=== PATIENT | male | born 1975 | race Caucasian/White ===

== ENCOUNTER 2022-03-17 17:14 | Emergency (ER) | payer MEDICAID ==
[~2022-03-17] VITALS: Ht 165.1 cm; Wt 86.2 kg
--- NOTE | 2022-03-17 17:30 | NUR ---
46 y/o M BIB self from home c/o nausea, vomiting blood this morning. Patient A&Ox4, ambulatory, states has been drinking for last 3 days; reports drinking 5 shots of liquor this morning and had 5 episodes of vomiting with blood in emesis. Jaudice noted to bilateral eyes. Patient denies abdominal pain, chest pain, diarrhea, constipation, dysuria, urinary symptoms, dizziness, headache. 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 VSS. Bed locked in lowest position, side rails x 1. PMH: etoh abuse "multiple years," DM Meds: becky HOLLOWAY Sx: Denies
--- NOTE | 2022-03-17 17:30 | NUR ---
Dr. Lao evaluating patient at bedside
--- NOTE | 2022-03-17 17:30 | NUR ---
Pt ambulated to bed 11 with steady/even gait.
[2022-03-17 17:31] VITALS: BP 156/80
--- NOTE | 2022-03-17 17:41 | NUR ---
Blood work given to CPT Nimco at ER bedside
--- NOTE | 2022-03-17 17:44 | NUR ---
Patient given urinal for urine collection.
[2022-03-17 17:50] LABS: BASOPHILS % (AUTO) 0.8 % (0.0-2.0); EOSINOPHILS % (AUTO) 0.7 % (0.0-4.0); HEMOGLOBIN 15.7 g/dL (12.0-18.0); LYMPHOCYTES # (AUTO) 1.5 K/uL (2.0-11.5); LYMPHOCYTES % (AUTO) 24.8 % (20.5-51.1); MEAN CORPUSCULAR HEMOGLOBIN 34 pg (27-31); MEAN CORPUSCULAR HGB CONC 36 g/dL (33-37); MEAN CORPUSCULAR VOLUME 96.8 fL (80-94); MONOCYTES # (AUTO) 0.4 K/uL (0.8-1.0); MONOCYTES % (AUTO) 6.3 % (1.7-9.3); NEUTROPHILS % (AUTO) 67.4 % (42.2-75.2); PLATELET COUNT (AUTO) 169 K/uL (140-450); RED BLOOD CELL COUNT(AUTO) 4.54 MIL/uL (4.20-6.10); RED CELL DISTRIBUTION WIDTH 13.9 % (11.6-13.7); WHITE BLOOD COUNT (AUTO) 5.9 K/uL (4.8-10.8)
[2022-03-17 18:08] LABS: ANION GAP 17.4 (8-16); CARBON DIOXIDE 28.1 mmol/L (21-32); CREATININE 0.8 mg/dL (0.6-1.3); POTASSIUM 3.5 mmol/L (3.5-5.1)
[2022-03-17 18:15] LABS: ALBUMIN 4.3 g/dL (3.4-5.0); TOTAL BILIRUBIN 0.5 mg/dL (0.0-1.0)
[2022-03-17] MEDS: PANTOPRAZOLE 40 MG INJ VIAL IVP ONE (18:19)
[2022-03-17] MEDS ORDERED: LIB25 PO (18:40)
[2022-03-17] MEDS ORDERED: ONDA-188 SL (18:40)
[2022-03-17] MEDS ORDERED: FAMO-90 PO (18:40)
[2022-03-17 19:08] VITALS: BP 135/73
--- NOTE | 2022-03-17 19:08 | NUR ---
Patient discharged with v/s stable. Written and verbal after care instructions given and explained for Alcohol Use Disorder, Gastritis (Adult). Patient alert, oriented and verbalized understanding of instructions. Ambulatory with steady gait. All questions addressed prior to discharge. ID band removed. Patient advised to follow up with PMD. Rx of Zofran ODT, famotidine, Librium given. Patient educated on indication of medication including possible reaction and side effects. Opportunity to ask questions provided and answered. Copies of blood work given to patient.
== END 2022-03-17 19:08 | disposition home or self-care (01) ==
LOC: MED 17:14
DX: K29.20 Alcoholic gastritis without bleeding (principal); K22.6 Gastro-esophageal laceration-hemorrhage syndrome; E11.9 Type 2 diabetes mellitus without complications; Z79.899 Other long term (current) drug therapy
CPT/HCPCS: 36415; 80053; 85025; 85610; 85730; 86886; 86900; 86901; 96374; 99283; C9113

== ENCOUNTER 2022-04-01 17:47 | Emergency (ER) | payer MEDICAID ==
[~2022-04-01] VITALS: Ht 158.8 cm; Wt 72.8 kg
[~2022-04-01 17:47] MED LIST: FAMO-90 PO; LIB25 PO; ONDA-188 SL
[2022-04-01 17:58] VITALS: BP 138/83
--- NOTE | 2022-04-01 18:00 | NUR ---
BIB SELF FOR MED REFILL & CELLULITIS.
[2022-04-01] MEDS ORDERED: CEPH-588 PO (19:14)
[2022-04-01 19:20] VITALS: BP 138/83
== END 2022-04-01 19:20 | disposition home or self-care (01) ==
LOC: MED 17:47
DX: L03.211 Cellulitis of face (principal); E11.9 Type 2 diabetes mellitus without complications; Z79.899 Other long term (current) drug therapy; Z76.0 Encounter for issue of repeat prescription
CPT/HCPCS: 99281; 99283

== ENCOUNTER 2022-10-29 11:35 | Emergency (ER) | payer SELFPAY ==
[~2022-10-29] VITALS: Ht 162.6 cm; Wt 77.1 kg
[~2022-10-29 11:35] MED LIST changes: +CEPH-588 PO
[2022-10-29 11:55] VITALS: BP 126/95; PULSE 73; RESP 18; TEMP 98.7; O2SAT 99
[2022-10-29 15:03] LABS: BASOPHILS % (AUTO) 0.2 % (0.0-2.0); HEMATOCRIT 41.9 % (36-52); HEMOGLOBIN 14.5 g/dL (12.0-18.0); LYMPHOCYTES # (AUTO) 0.7 K/uL (2.0-11.5); LYMPHOCYTES % (AUTO) 10.4 % (20.5-51.1); MEAN CORPUSCULAR HEMOGLOBIN 34 pg (27-31); MEAN CORPUSCULAR HGB CONC 35 g/dL (33-37); MEAN CORPUSCULAR VOLUME 98.1 fL (80-94); MONOCYTES # (AUTO) 0.6 K/uL (0.8-1.0); MONOCYTES % (AUTO) 9.1 % (1.7-9.3); NEUTROPHILS # (AUTO) 5.7 K/uL (1.8-7.7); NEUTROPHILS % (AUTO) 80.3 % (42.2-75.2); PLATELET COUNT (AUTO) 168 K/uL (140-450); RED BLOOD CELL COUNT(AUTO) 4.27 MIL/uL (4.20-6.10); WHITE BLOOD COUNT (AUTO) 7.1 K/uL (4.8-10.8)
[2022-10-29 15:14] LABS: ANION GAP 13.6 (8-16); CALCIUM 9.2 mg/dL (8.5-10.1); CARBON DIOXIDE 30.4 mmol/L (21-32); CREATININE 0.7 mg/dL (0.6-1.3)
[2022-10-29 15:37] LABS: LIPASE 85 U/L (73-393)
[2022-10-29] MEDS ORDERED: ASPIRIN 325 MG TAB PO ONE (16:00)
[2022-10-29 16:10] VITALS: BP 148/76; PULSE 69; RESP 18; TEMP 98; O2SAT 98
== END 2022-10-29 16:10 | disposition home or self-care (01) ==
LOC: MED 11:35
DX: R07.9 Chest pain, unspecified (principal); R11.2 Nausea with vomiting, unspecified; E11.65 Type 2 diabetes mellitus with hyperglycemia; I10 Essential (primary) hypertension; Z79.4 Long term (current) use of insulin; Z79.899 Other long term (current) drug therapy
CPT/HCPCS: 36415; 71045; 80048; 83690; 84484; 85025; 93005; 99285